=== PATIENT | male | born 1965 | race Caucasian/White ===

== ENCOUNTER 2017-05-10 21:46 | Emergency (ER) | payer OTHER ==
[2017-05-10 22:02] VITALS: TEMP 98.2; BMI 31.5
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
--- NOTE | 2017-05-11 01:08 | PDOC ---
Attending Attestation - Resident Resident Name: Vlad Cardoza - ED Attending Attestation I have performed the following: I have examined & evaluated the patient, The case was reviewed & discussed with the resident, I agree w/resident's findings & plan, Exceptions are as noted - HPI HPI: 05/11/17 19:27 Pt s/p fall. +LOC unclear of circumstances. Pt presents with abrasion to right side of face. - Physicial Exam PE: 05/11/17 02:53 *Physical Exam General Appearance: Yes: Appropriately Dressed. No: Apparent Distress, Intoxicated HEENT: positive: EOMI, LEBRON, Normal ENT Inspection, Normal Voice, TMs Normal, Pharynx Normal. moderate abrasions and soft tissue swelling to right of face, particularly under right eye, right maxillary region. no bony crepitus negative : Pale Conjunctivae, Photophobia, Scleral Icterus (R), Scleral Icterus (L) Neck: positive: Trachea midline, Normal Thyroid, Supple. negative: Tender, Rigid, Carotid bruit, Stridor, Lymphadenopathy (R), Lymphadenopathy (L), Thyromegaly Respiratory/Chest: positive: Lungs Clear, Normal Breath Sounds. negative: Chest Tender, Respiratory Distress, Accessory Muscle Use, Labored Respiration, RES, Crackles, Rales, Rhonchi, Stridor, Wheezing, Dullness Cardiovascular: positive: Regular Rhythm, Regular Rate, S1, S2. negative: Edema , JVD, Murmur, Bradycardia, Tachycardia Vascular Pulses: Dorsalis-Pedis (R): 2+, Doralis-Pedis (L): 2+ Gastrointestinal/Abdominal: positive: Normal Bowel Sounds, Flat, Soft. negative : Tender, Organomegaly, Pulsatile Mass, Increased Bowel Sounds, Decreased BS, Distended, Guarding, Rebound, Hernia, Hepatomegaly, Spleenomegaly Lymphatic: negative: Adenopathy, Tenderness Musculoskeletal: positive: Normal Inspection. negative: CVA Tenderness, Decreased Range of Motion Extremity: positive: Normal Capillary Refill, Normal Inspection, Normal Range of Motion, Pelvis Stable. negative: Tender, Pedal Edema, Swelling, Erythema Integumentary: positive: Normal Color, Dry, Warm. negative: Cyanotic, Erythema , Jaundice, Rash Neurologic: positive: gameroom technician II-XII NML intact, Fully Oriented, Alert, Normal Mood/ Affect, Motor Strength 5/5. negative: EOM Palsy, Facial Droop, Sensory Deficit - Medical Decision Making 05/11/17 19:[address] scans are negative. Pt neurologically intact. Accompanied by family for discharge. Discharge Disposition - Diagnosis Abrasion Fall Qualifiers: Encounter type: initial encounter Qualified Code(s): W19.XXXA - Unspecified fall, initial encounter Closed head injury Qualifiers: Encounter type: initial encounter Qualified Code(s): S09.90XA - Unspecified injury of head, initial encounter - Discharge Dispostion Disposition: HOME Condition at time of disposition: Stable Admit: No - Prescriptions Prescriptions: Ibuprofen 800 mg PO TID #30 tablet Cephalexin Monohydrate [Keflex -] 500 mg PO BID #14 capsule Oxycodone HCl/Acetaminophen [Percocet 5-325 mg Tablet] 1 tab PO Q6H #20 tablet MDD 4 - Referrals Referrals: STAFF,NOT ON [Primary Care Provider] - Amado Sears MD [Staff Physician] - Hema Mas MD [Staff Physician] - - Patient Instructions Printed Discharge Instructions: DI for Closed Head Injury, DI for Abrasion Additional Instructions: Keep wounds clean and dry. Wash with soap and water. Purchase and apply Bacitracin ointment at least twice daily. Use a hat to keep away from the sun until all is healed over - Post Discharge Activity Work/School Note: Back to Work
[2017-05-11 01:39] LABS: BASOPHIL 0.2 % (0-2.0); EOSINOPHIL 0.1 % (0-4.5); MCH 29.3 pg (25.7-33.7); MCHC 34.1 g/dl (32.0-35.9); MEAN CELL VOLUME 85.8 fl (80-96); MEAN PLT VOLUME 8.9 fl (7.5-11.1); NEUTROPHILS 83.2 % (42.8-82.8); PLATELET COUNT 184 K/MM3 (134-434); RDW 13.7 % (11.9-15.9); WHITE BLOOD COUNT 10.9 K/mm3 (4.0-10.0)
[2017-05-11 01:43] LABS: URINE APPEARANCE CLEAR; URINE BILIRUBIN NEGATIVE (NEGATIVE); URINE BLOOD NEGATIVE (NEGATIVE); URINE COLOR LTYELLOW; URINE GLUCOSE (UA) NEGATIVE (NEGATIVE); URINE KETONE 2+ (NEGATIVE); URINE LEUK ESTERASE NEGATIVE (NEGATIVE); URINE NITRITE NEGATIVE (NEGATIVE); URINE PROTEIN NEGATIVE (NEGATIVE); URINE UROBILINOGEN NEGATIVE mg/dL (0.2-1.0)
[2017-05-11 01:50] LABS: URINE MARIJUANA THC NEGATIVE ng/ml (CUTOFF=50)
[2017-05-11 03:04] LABS: ALBUMIN 4.3 g/dl (3.4-5.0); ALK PHOS 58 U/L (45-117); ANION GAP 10 (8-16); BILIRUBIN,TOTAL 0.9 mg/dL (0.2-1.0); CALCIUM 9.3 mg/dL (8.5-10.1); CO2 25 mmol/L (21-32); GLUCOSE,RANDOM 92 mg/dL (74-106); SGOT/AST 29 U/L (15-37); SGPT/ALT 32 U/L (12-78); TOT PROT 7.3 g/dl (6.4-8.2)
[2017-05-11 03:41] VITALS: BP 136/89; PULSE 79
== END 2017-05-11 03:42 | disposition home or self-care (01) ==
LOC: JER 21:46
DX: S09.90XA Unspecified injury of head, initial encounter (principal); W18.30XA Fall on same level, unspecified, initial encounter; Y93.89 Activity, other specified; Y99.2 Volunteer activity
CPT/HCPCS: 36415; 70450-TC; 70486-TC; 72125-TC; 80053; 80307; 81003; 85025; 99282-25

== ENCOUNTER 2019-02-23 14:19 | Emergency (ER) | payer OTHER | END 2019-02-23 15:57 | disposition home or self-care (01) | LOC: JER 14:19 → JERFT 15:57 ==

== ENCOUNTER 2019-03-10 13:28 | Emergency (ER) | payer OTHER | END 2019-03-10 16:45 | disposition home or self-care (01) | LOC: JER 13:28 ==